=== PATIENT | male | born 1990 | race Caucasian/White ===

== ENCOUNTER 2017-02-22 01:04 | Emergency (ER) | payer BC ==
--- NOTE | 2017-02-24 09:46 | NUR ---
Received SAD person referral. Pt was [facility]'d [facility].
--- NOTE | 2017-02-25 00:34 | ER ---
ADMIT: 02/22/2017 RM/LOC: ER [facility] MR#: [id number] [id number] [facility] [address] [place] [address] Emergency Room Report SEX: M AGE: 26 : 1990 DATE: 02/22/2017 ADDENDUM: TIME: [address] Kumar's T-sheet for complete H and P. HISTORY OF PRESENT ILLNESS: Briefly, the patient is a 26-year-old who was brought in for agitation, depression, suicide ideation. He was given Geodon 10 mg IM. He had received Ativan 2 because he was uncooperative. I am basically following up on his disposition. [facility], they have accepted. He has been an EPC candidate. Police Department has been here. His labs essentially came back unremarkable except his alcohol level of 295. His tox screen was negative. He was much more cooperative. He is able to walk and he was stable and ready for transfer by 0740 in the morning after I came in. ASSESSMENT: 1. Suicide ideation. 2. EtOH abuse. 3. Depression. 4. Drug abuse. PLAN: To [facility] for psych evaluation. Jose Matson MD/ modl JOB #: [id number] CC: Angel Fernandes MD, Attending Physician Adalberto Lopez MD, Family Physician
== END 2017-02-22 05:00 ==
LOC: ER 01:04
DX: F32.3 Major depressive disorder, single episode, severe with psychotic features (principal); F10.10 Alcohol abuse, uncomplicated; R45.851 Suicidal ideations